=== PATIENT | female | born 1970 | race Hispanic/Latino ===

== ENCOUNTER 2019-01-23 13:39 | Outpatient (CLI) | payer BC ==
--- NOTE | 2019-01-23 15:54 | Mammography Report ---
BILATERAL DIGITAL SCREENING MAMMOGRAM with CAD: 01/23/19 13:39:00 CLINICAL: Routine screening.Previous right benign biopsies. History of numerous bilateral benign cysts. COMPARISON:09/30/15 bilateral mammogram and 11/25/15 bilateral breast ultrasound. FINDINGS: The breasts are heterogeneously dense, which may obscure small masses. Numerous bilateral circumscribed densities as seen on the last exam. Right upper outer circumscribed masses or cysts are larger compared to the last exam. Scattered bilateral benign calcifications. 2 right upper outer biopsy clips.No architectural distortion or suspicious calcifications. IMPRESSION: Right upper outer masses or cysts requiring further workup. Negative left breast. BI-RADS CATEGORY: 0 -- Additional Imaging Evaluation Required RECOMMENDATION: Recall for right upper outer targeted ultrasound to exclude a solid mass. COMMENT: 1. Dense breast tissue, i.e., adenosis, fibrocystic changes, etc., may obscure an underlying neoplasm. 2. Approximately 10% of cancers are not detected with mammography. 3. A negative mammography report should not delay biopsy if a clinically suspicious mass is present. COMMENT: Patient follow-up letters are generated via our [employer] application.
== END 2019-01-23 13:40 | disposition home or self-care (01) ==
LOC: SPVWC 13:39
PROVIDERS: ATTEND Obstetrics & Gynecology
DX: Z12.31 Encounter for screening mammogram for malignant neoplasm of breast (principal)
CPT/HCPCS: 77067

== ENCOUNTER 2019-02-15 08:08 | Outpatient (CLI) | payer BC ==
--- NOTE | 2019-02-15 09:02 | Ultrasound Report ---
RIGHT BREAST ULTRASOUND: 02/15/19 08:08:00 CLINICAL: Circumscribed masses on mammogram. COMPARISON: 01/23/19 FINDINGS: Ultrasound of the upper outer right breast was performedand demonstrated numerous benign cysts. The largest is at 11 o'clock 4 cm from the nipple measuring 4.4 x 3.5 x 1.6 cm. Most of the cysts are anechoic. An oval complex cyst versus solid mass at 10:30 o'clock 2 cm from the nipple measures 1.5 x 1.5 x 0.8 cm. IMPRESSION: Numerous benign cysts and a complex cyst versus solid mass at 10:30 o'clock 2 cm from nipple. Recommend ultrasound guided cyst aspiration of this lesion at 10:30 o'clock 2 cm from the nipple. Recommend needle core biopsy if fluid cannot be aspirated. BI-RADS 4--Suspicious At the time of the exam, the patient was informed of the recommendation for cyst aspiration and possible biopsy.
--- NOTE | 2019-02-15 13:35 | Ultrasound Report ---
ULTRASOUND ASPIRATION RIGHT BREAST: 02/15/19 CLINICAL: Complex cyst versus solid mass at 10:30 o'clock 2 cm from the nipple. COMPARISON: Right breast ultrasound on the same day. FINDINGS: The procedure was explained to the patient and informed consent was obtained. Ultrasound demonstrated the previously described lesion. The skin was cleansed with Betadine and anesthetized with 1% lidocaine. An 18-gauge needle was introduced into the lesion with ultrasound guidance. Only a minimal amount of dark sandy fluid was aspirated but the lesion showed complete collapse. At the same time a more anterior 2.4 cm anechoic cyst was aspirated and showed complete collapse. All fluid was discarded. The patient tolerated the procedure well and there were no apparent complications. IMPRESSION: 1. Uncomplicated ultrasound-guided aspiration of a complex cyst at 10:30 o'clock 2 cm from the nipple and ultrasound-guided aspiration of an adjacent larger anechoic cyst at the same time. 2. Benign cysts and no solid mass. 3. Recommend clinical followup and routine mammographic screening.
== END 2019-02-15 08:09 | disposition home or self-care (01) ==
LOC: SPVWC 08:08
PROVIDERS: ATTEND Obstetrics & Gynecology
DX: N60.01 Solitary cyst of right breast (principal); N64.59 Other signs and symptoms in breast